=== PATIENT | female | born 1965 | race Caucasian/White ===

== ENCOUNTER → 2018-01-26 | Outpatient (CLI) | payer OTHER ==
[~2018-01-26] VITALS: Ht 162.6 cm; Wt 81.2 kg
[~2018-01-26] MED LIST: CELEBREX200 MG PO; DIAZEPAM5 MG PO; HYDROCODON-ACE1 EAC7 PO; IRON18 MG PO; MOTRIN800 MG PO; NON-ASPIRIN PA500 M1 PO; ONE DAILY WOME1 EACH PO; PRILOSEC40 MG PO; RITALIN10 MG PO; SYNTHROID125 MCG PO; SYNTHROID88 MCG PO; VENLAFAXINE HC100 MG PO; VITAMIN D250000 UNIT PO; VITAMIN D35000 UNIT PO
== END | disposition home or self-care (01) ==
LOC: AMB 10:51 → OPR 13:00 → AMB 13:00
PROC: 0DJ08ZZ Inspection of Upper Intestinal Tract, Via Natural or Artificial Opening Endoscopic (ICD-10-PCS; principal; 2018-01-26)
DX: K29.70 Gastritis, unspecified, without bleeding (principal); Z98.84 Bariatric surgery status; K21.9 Gastro-esophageal reflux disease without esophagitis; K91.2 Postsurgical malabsorption, not elsewhere classified; K92.1 Melena; Z87.891 Personal history of nicotine dependence
CPT/HCPCS: J0330